=== PATIENT | female | born 1950 | race Caucasian/White ===

== ENCOUNTER 2017-09-08 20:24 | Observation (INO) | payer BC, MEDICARE ==
[~2017-09-08] VITALS: Ht 157.5 cm; Wt 59.0 kg
[2017-09-08 20:33] VITALS: BP 180/90
[2017-09-08] MEDS ORDERED: PAXIL10 MG (20:40)
[2017-09-08] MEDS ORDERED: LISINIPRIL PO (20:40)
[2017-09-08 20:56] LABS: ABSOLUTE BASOPHILS 0.1 thou/uL (0.0-0.2); ABSOLUTE EOSINOPHILS 0.2 thou/uL (0.0-0.7); ABSOLUTE LYMPHOCYTES 2.5 thou/uL (0.8-5.3); ABSOLUTE MONOCYTES 0.8 thou/uL (0.0-1.2); ABSOLUTE NEUTROPHILS 3.9 thou/uL (1.6-8.1); BASOPHILS 0.8 %; EOSINOPHILS 2.2 %; HEMATOCRIT 39.5 % (37.0-47.0); HEMOGLOBIN 13.5 gm/dL (12.0-15.0); LYMPHOCYTES 33.4 %; MCH 31.3 pg (26.0-34.0); MCHC 34.2 g/dL (28.0-37.0); MCV 91.6 fL (80.0-100.0); MONOCYTES 10.5 %; NUCLEATED RBCS 0 /100WBC; PLATELET COUNT* 294 thou/uL (150-400); POLYS 53.1 %; RBC 4.32 mil/uL (4.20-5.00); RDW-CV 12.6 % (10.5-14.5); WBC 7.4 thou/uL (4.0-11.0)
[2017-09-08 21:06] LABS: ANION GAP 8 mmol/L (7-16); BUN 19 mg/dL (7-18); CALCIUM 8.9 mg/dL (8.5-10.1); CHLORIDE 104 mmol/L (98-107); CO2 28 mmol/L (21-32); CREATININE 0.8 mg/dL (0.6-1.3); GLUCOSE 98 mg/dL (70-99); POTASSIUM 3.9 mmol/L (3.5-5.1); SODIUM 140 mmol/L (136-145)
[2017-09-08 21:13] LABS: ALBUMIN 3.8 g/dL (3.4-5.0); ALKALINE PHOSPHATASE 119 U/L (46-116); APTT 28.2 Seconds (25.0-31.3); LIPASE 259 U/L (73-393); SGOT 25 U/L (15-37); SGPT 28 U/L (30-65); TOTAL BILIRUBIN 0.2 mg/dL (<0.1-1.0); TOTAL PROTEIN 7.2 g/dL (6.4-8.2); TROPONIN-I LEVEL <0.06 ng/mL (<0.06)
--- NOTE | 2017-09-08 21:33 | NUR ---
PATIENT STATES THAT HSE HAS "ONLY HAD A COUPLE OF LITTLE PAINS SINCE MEDICATION WAS GIVEN, DOES NOT FEEL ANYTHING LIKE IT DID EARLIER"
--- NOTE | 2017-09-08 22:23 | NUR ---
PATIENT ALERT AND ORIENTED TIMES FOUR. STATES THAT SHE FEELS MUCH BETTER AND IS INQUIRING ABOUT THE RESULTS OF HER CHEST XRAY. INFORMED PATIENT THAT STAFF WOULD KEEP HER INFORMED OF THE RESULTS.
[2017-09-09 01:07] VITALS: BP 125/78
--- NOTE | 2017-09-09 04:30 | NUR ---
PATIENT AROUSED TO CHANGE HER TO A MORE COMFORTABLE BED. VITAL SIGNS REMAIN STABLE.
[2017-09-09 04:31] VITALS: BP 137/63
[2017-09-09 08:31] VITALS: BP 122/59
[2017-09-09 08:38] LABS: CHOLESTEROL 181 mg/dL (<200); HDL CHOLESTEROL 74 mg/dL (>40); LDL CHOLESTEROL 87 mg/dL (<100); SERUM ASSESSMENT Clear; TC:HDL 2.4 Ratio (Not establshd); TRIGLYCERIDE 101 mg/dL (<150); VLDL 20 mg/dL (<40)
--- NOTE | 2017-09-09 10:16 | NUR ---
RETURNED FROM STRESS TEST TO ED ROOM 15.
[2017-09-09 12:39] VITALS: BP 145/83
--- NOTE | 2017-09-09 12:48 | NUR ---
CALL RECEIVED FROM DR. NIEVES WHO STATES STRESS ECHO IS NORMAL. REPORTED TO DR. PETIT.
--- NOTE | 2017-09-09 12:50 | EXE ---
[place] [address] STRESS ECHOCARDIOGRAM Name: SAMIRA MISHRA Room: [address]#: [id number] Admission: 09/08/17 Attend Phys: Lizz Cloud, Discharge: Date of : 46 Date of Service: 09/09/17 1250 Report #: [id number] THIS REPORT FOR: //name// APPROVED REPORT Exam: Stress Echocardiogram Indication: Chest pain Patient Location: ER Stress Nurse: Sarina Mendoza RN Supervising Physician: Terence Tejeda MD Status: routine Ht: 5 ft 2 in HR: 64 bpm BP: 163/87 mmHg Medical History Cardiac Risk Factors: HTN Procedure The patient underwent an Exercise Stress Test using the Jose Antonio Protocol. Blood pressure, heart rate, and EKG were monitored. An Echocardiogram was performed by production technician in four stages in quad fashion. At peak stress, four selected images were obtained and placed side by side with resting images for comparison. Stress Test Details Stress Test: Exercise stress testing was performed using a Jose Antonio protocol. HR Resting HR: 64 bpm Max Heart Rate (APMHR): 151 bpm Max HR Achieved: 143 bpm Target HR (85% APMHR): 128 bpm % of APMHR: 94 Recovery HR: 91 bpm HR response to stress: Normal HR response to stress BP Resting BP: 163/87 mmHg Max BP: 190/75 mmHg Recovery BP: 130/74 mmHg ECG Resting ECG: Sinus Rhythm, normal EKG Stress ECG: Sinus Tachycardia ST Change: None Arrhythmia: [place] [address] STRESS ECHOCARDIOGRAM Name: SAMIRA MISHRA [address] [id number] Admission: 09/08/17 Attend Phys: Lizz Cloud, Discharge: Date of : 46 Date of Service: 09/09/17 1250 Report #: [id number] Recovery ECG: Sinus Rhythm, normal EKG Recovery ST Change: None Recovery Arrhythmia: None Clinical Reason for Termination: Maximal effort, Completed protocol Exercise duration: 6 min sec Highest Stage Achieved: Stage 2: 2.5 mph at 12% grade. Exercise capacity: 7.05 METs The patient had no significant chest pain with standard Jose Antonio protocol exercise. Stress ECG Conclusion The baseline 12-lead electrocardiogram showed normal sinus rhythm with no significant ST or T-wave abnormalities. EKGs obtained during and post exercise stress showed sinus rhythm and sinus tachycardia with no significant ST or T wave changes when compared to baseline. There were no stress-induced arrhythmias. Pre-Stress Echo The resting Echocardiogram showed normal left ventricular contractility with an estimated Ejection Fraction of about 60-65%. Post-Stress Echo The stress Echocardiogram showed normal left ventricular contractility with an estimated Ejection Fraction of about >70%. Clinical No clinical or ECG evidence for ischemia. Conclusion Clinical Response: Non-ischemic Exercise Capacity: Average Stress ECG Response: Non-ischemic Stress Echo Images: Non-ischemic The left ventricle is normal in size and wall thickness in both the rest and stress images. No prior study available for comparison. Other Information Study Quality: Good <Conclusion> [place] [address] STRESS ECHOCARDIOGRAM Name: SAMIRA MISHRA Room: [address] M.R.#: [id number] Admission: 09/08/17 Attend Phys: Lizz Cloud, Discharge: Date of : 46 Date of Service: 09/09/17 1250 Report #: [id number] The left ventricle is normal in size and wall thickness in both the rest and stress images. <ELECTRONICALLY SIGNED> By: Terence Tejeda MD, FACC 09/09/17 1250 49 49 Terence Tejeda MD, FACC /INF
[2017-09-09 13:45] VITALS: BP 145/83
[2017-09-09 14:15] VITALS: BP 145/83
--- NOTE | 2017-09-09 17:16 | EKG ---
[place] [address] ELECTROCARDIOGRAM REPORT Name: SAMIRA MISHRA Room: [address]#: [id number] Admission: 09/08/17 Attend Phys: Lizz Cloud MD Discharge: 09/09/17 Date of : 46 Report #: [id number] THIS REPORT FOR: //name// [facility] ED Test Date: 2017-09-08 Test Time: 20:32:59 Pat Name: SAMIRA MISHRA Department: Room: [facility] Gender: F Chipper Feeder: 89 : 1950 Requested By: Lucinda Landry Order Number: [id number] MD: Terence Tejeda Measurements Intervals [place] Rate: 90 P: 45 [place]: 164 QRS: 81 QRSD: 104 T: 42 QT: 358 QTc: 438 Interpretive Statements Sinus rhythm Borderline right axis deviation No previous ECG available for comparison Electronically Signed On 09-09-2017 17:16:17 INSTRUMENT REPAIR SUPERVISOR by Terence Tejeda [email or web address] <ELECTRONICALLY SIGNED> By: Terence Tejeda MD, [facility] 09/09/17 1716 31 31 Terence Tejeda MD, FACC /EPI
== END 2017-09-09 14:11 | disposition home or self-care (01) ==
LOC: M.ERS 20:24 → M.TBA-ER 23:39
PROVIDERS: Internal Medicine; Personal Emergency Response Attendant; ADMIT Internal Medicine
DX: R07.89 Other chest pain (principal); I10 Essential (primary) hypertension; F32.9 Major depressive disorder, single episode, unspecified; I16.0 Hypertensive urgency; J98.11 Atelectasis; N95.0 Postmenopausal bleeding; Z77.22 Contact with and (suspected) exposure to environmental tobacco smoke (acute) (chronic)